=== PATIENT | female | born 1960 | race Caucasian/White ===

== ENCOUNTER → 2023-06-05 19:36 | Outpatient (REF) | payer BC, SELFPAY | LOC: WDC 19:36 | PROVIDERS: ATTENDING PHYSICIAN Obstetrics & Gynecology; FAMILY PHYSICIAN Family Medicine | DX: Z12.31 Encounter for screening mammogram for malignant neoplasm of breast (principal) | CPT/HCPCS: 77063; 77067 ==

== ENCOUNTER → 2023-10-02 10:55 | Outpatient (REF) | payer OTHER, SELFPAY | LOC: RAD 10:55 | PROVIDERS: ATTENDING PHYSICIAN Family Medicine | DX: M81.0 Age-related osteoporosis without current pathological fracture (principal); I71.20 Thoracic aortic aneurysm, without rupture, unspecified; R91.8 Other nonspecific abnormal finding of lung field | CPT/HCPCS: 71250; 77080 ==

== ENCOUNTER → 2023-11-08 19:32 | Outpatient (REF) | payer OTHER, SELFPAY | LOC: MRI 3T 19:32 | PROVIDERS: ATTENDING PHYSICIAN Family Medicine; REFERRING PHYSICIAN Surgery | DX: Z12.31 Encounter for screening mammogram for malignant neoplasm of breast (principal); Z80.3 Family history of malignant neoplasm of breast | CPT/HCPCS: 77049; A9575 ==

== ENCOUNTER → 2024-01-10 09:31 | Outpatient (REF) | payer OTHER, SELFPAY | LOC: RCS 09:31 | PROVIDERS: ATTENDING PHYSICIAN Internal Medicine Cardiovascular Disease; FAMILY PHYSICIAN Nurse Practitioner Adult Health | DX: R06.09 Other forms of dyspnea (principal) | CPT/HCPCS: 93306 ==